=== PATIENT | female | born 1960 | race Caucasian/White ===

== ENCOUNTER 2016-12-04 20:47 | Emergency (ER) | payer OTHER ==
[2016-12-04 21:25] LABS: BASOPHILS % 0.4 (0.0-1.5); EOSINOPHILS % 3.8 % (0.0-6.8); MEAN CORPUSCULAR HEMOGLOBIN 32.3 pg (28.0-34.0); MEAN CORPUSCULAR VOLUME 91.8 fl (80.0-100.0); MONOCYTES % 5.1 % (0.0-11.0); NEUTROPHILS # 2.4 # k/uL (1.4-7.7)
--- NOTE | 2016-12-04 21:30 | ED Physician Documentation ---
General Adult - HISTORIAN Historian: patient, other (old records) - HPI Stated Complaint: chest pain, right shoulder pain Chief Complaint: General Adult Additional Information: Just doesn't feel good. R shoulder discomfort for 2 days, just like pain she has had intermittently for months. Had MRI, but never called to find out what it showed. Doesn't take meds for shoulder. No heat or ice. Low sternal discomfort for two days; aches. Better now. 3-4/110 intensity at its worst. Cough began this am. Out of claritin. Just wants an EKG. - ROS CONST: other (feels fisher hand line the evenings). denies: sweating - PAST HX Past History: asthma (doesn't use inhalers because she can't afford), other ( Says she had an ECHO last year and is to have another soon. Doesn't know why, or results. ) Allergies/Adverse Reactions: Allergies Allergy/AdvReac Type Severity Reaction Status Date / Time albuterol Allergy Verified 12/04/16 21:11 atenolol Allergy Verified 12/04/16 21:11 cephalexin monohydrate Allergy Verified 12/04/16 21:11 [From Keflex] ciprofloxacin [From Cipro] Allergy Verified 12/04/16 21:11 ciprofloxacin HCl Allergy Verified 12/04/16 21:11 [From Cipro] erythromycin base Allergy Verified 12/04/16 21:11 levofloxacin [From Levaquin] Allergy Verified 12/04/16 21:11 Penicillins Allergy Verified 12/04/16 21:11 Home Medications: Ambulatory Orders Medication Instructions Recorded Aspirin [Melony] 81 mg PO D 03/28/15 Hydrochlorothiazide 25 mg PO D 03/28/15 Ipratropium [place] [Atrovent] 2 puff IH BID 03/28/15 Levothyroxine Sodium [Synthroid] 150 mcg PO D 03/28/15 Loratadine [Claritin] 10 mg PO D 03/28/15 Omeprazole [Prilosec] 40 mg PO BID 03/28/15 Calcium Carb/Magnesium Hydrox 1 each PO D 05/12/15 [Antacid 675-135 mg Tab Chew] Cholecalciferol [Vitamin D-3] 1,000 unit PO DAILY 05/12/15 Multivitamin [Tab-A-Sadia] 1 each PO DAILY 05/12/15 - SOCIAL HX Smoking History: non-smoker - FAMILY HX Family History: No - VITAL SIGNS Vital Signs: Vital Signs Temp Pulse Resp BP Pulse Ox 63 16 165/62 95 12/04/16 21:00 12/04/16 21:00 12/04/16 21:00 12/04/16 21:10 - REVIEWED ASSESSMENTS Nursing Assessment Reviewed: Yes Vitals Reviewed: Yes Progress - Progress Progress: Chest, PA and lateral History: Cough, chest pain Findings: No infiltrate, effusion or pneumothorax is present. Heart size, mediastinum and pulmonary vascularity are normal. Impression: No active disease. Electronically signed on Dec 04, 2016 9:54:24 PM CDT by: See Zapien ED Results Lab/Radiology - Orders Orders: ED Orders Category Date Time Status Continuous EKG monitoring Q1H Care 12/04/16 21:10 Active Continuous Pulse Oximetry Q1H Care 12/04/16 21:10 Active CHEST P.A.&LAT 2 VIEWS [RAD] Stat Exams 12/04/16 Ordered CBC/PLATELET/DIFF Routine Lab 12/04/16 21:16 Received CMP Routine Lab 12/04/16 21:16 Received TROPONIN I (cTnI) Stat Lab 12/04/16 21:16 Received URINALYSIS Routine Lab 12/04/16 Ordered EKG WITH COMPARISON Stat Ther 12/04/16 Ordered General Adult Physical Exam - PHYSICAL EXAM GENERAL APPEARANCE: laughing, joking on admission. Obese. EENT: eye inspection normal, ENT inspection normal NECK: normal inspection, supple RESPIRATORY: no resp distress, chest non-tender, breath sounds normal CVS: reg rate & rhythm, heart sounds normal, no murmur ABDOMEN: soft, normal bowel sounds, non-tender RECTAL: deferred BACK: normal inspection, no CVA tenderness, other (no midline tenderness) SKIN: warm/dry, normal color EXTREMITIES: normal range of motion (gait and stance), no evidence of injury NEURO: CN's nml as tested, motor nml, sensation nml, cognition normal Discharge Clincal Impression: Chest wall pain, chronic right shoulder pain Additional Instructions: Take your claritin regularly. Heat and cold to the right shoulder. Home Medications: Ambulatory Orders Aspirin [Melony] 81 mg PO D 03/28/15 Hydrochlorothiazide 25 mg PO D 03/28/15 Ipratropium [place] [Atrovent] 2 puff IH BID 03/28/15 Levothyroxine Sodium [Synthroid] 150 mcg PO D 03/28/15 Loratadine [Claritin] 10 mg PO D 03/28/15 Omeprazole [Prilosec] 40 mg PO BID 03/28/15 Calcium Carb/Magnesium Hydrox [Antacid 675-135 mg Tab Chew] 1 each PO D Cholecalciferol [Vitamin D-3] 1,000 unit PO DAILY 05/12/15 Multivitamin [Tab-A-Saida] 1 each PO DAILY 05/12/15 Condition: Good Disposition: 01 HOME, SELF-CARE Decision to Admit: NO Decision Time: 22:00
[2016-12-04 21:37] LABS: eGFR (African) > 60; eGFR (Non-African) > 60
[2016-12-04 22:10] VITALS: BP 134/66
--- NOTE | 2016-12-05 02:29 | Diagnostic Imaging Report ---
JONY RHODES~ [facility] [address] [facility] [address] [place], [place]. [address] ~ ~ ~ ~ Report Submission Date: Dec 04, 2016 9:54:24 PM CDT Patient ~ Study Name: CORBIN KNOTT ~ Date: Dec 04, 2016 9:31:34 PM CDT ~ Modality Type: CR Gender: F ~ Description: CHEST : 56 ~ Institution: [facility] Physician: JONY RHODES ~ ~ ~ ~ Chest, PA and lateral History: Cough, chest pain Findings: No infiltrate, effusion or pneumothorax is present. Heart size, mediastinum and pulmonary vascularity are normal. Impression: No active disease. ~ Electronically signed on Dec 04, 2016 9:54:24 PM CDT by: See CANO
== END 2016-12-04 22:05 | disposition home or self-care (01) ==
LOC: ED 20:47
DX: R07.9 Chest pain, unspecified (principal); M25.511 Pain in right shoulder
CPT/HCPCS: 71020; 80053; 84484; 85025; 99283; S1016

== ENCOUNTER 2016-12-06 11:03 | Emergency (ER) | payer OTHER ==
[2016-12-06] MEDS ORDERED: LACTATED RINGERS 1,000 ML IV ONE (11:37)
--- NOTE | 2016-12-06 11:39 | ED Physician Documentation ---
Dizziness - HISTORIAN Historian: patient - HPI Stated Complaint: dizziness Chief Complaint: Dizziness Additional Information: she said the room is spinning, worse when she moves around. she was here 2 days ago for chest pain. AMI was ruled out. She took a meclizine today, but vomited afterwards. somewhat confusing is her history. When she revealed she had taken meclizine, I inquired is she has had dizzy spells before, and she stated "long time ago." so I inquired about how old the meclizine was, and she said "oh I just got it refilled>" so i asked how often she needs to take it, ahe states 3- 4 times a week, "I get woozy when I walk up the stairs. Timing: sudden onset Duration: constant Severity: mild Associated Symptoms: nausea, vomiting, sense of spinning Usually: walks w/o assistance Worsened By: changing position, movement of head Further Comments: no - ROS CONST: none EYES/ENT: none GI/: none MS/SKIN/LYMPH: none NEURO/PSYCH: none CVS/RESP: chest pain (came here 2 days ago, had complete workup) - PAST HX Past History: asthma, hyperlipidemia, hypertension Allergies/Adverse Reactions: Allergies Allergy/AdvReac Type Severity Reaction Status Date / Time albuterol Allergy Verified 12/06/16 12:08 atenolol Allergy Verified 12/06/16 12:08 cephalexin monohydrate Allergy Verified 12/06/16 12:08 [From Keflex] ciprofloxacin [From Cipro] Allergy Verified 12/06/16 12:08 ciprofloxacin HCl Allergy Verified 12/06/16 12:08 [From Cipro] erythromycin base Allergy Verified 12/06/16 12:08 levofloxacin [From Levaquin] Allergy Verified 12/06/16 12:08 Penicillins Allergy Verified 12/06/16 12:08 Home Medications: Ambulatory Orders Medication Instructions Recorded Aspirin [Melony] 81 mg PO D 03/28/15 Hydrochlorothiazide 25 mg PO D 03/28/15 Ipratropium [place] [Atrovent] 2 puff IH BID 03/28/15 Levothyroxine Sodium [Synthroid] 150 mcg PO D 03/28/15 Loratadine [Claritin] 10 mg PO D 03/28/15 Omeprazole [Prilosec] 40 mg PO BID 03/28/15 Calcium Carb/Magnesium Hydrox 1 each PO D 05/12/15 [Antacid 675-135 mg Tab Chew] Cholecalciferol [Vitamin D-3] 1,000 unit PO DAILY 05/12/15 Multivitamin [Tab-A-Sadia] 1 each PO DAILY 05/12/15 - SOCIAL HX Smoking History: non-smoker Alcohol Use: none Drug Use: none - FAMILY HX Family History: none - VITAL SIGNS Vital Signs: Vital Signs Temp Pulse Resp BP Pulse Ox 98.2 F 61 20 143/60 94 12/06/16 11:32 12/06/16 11:32 12/06/16 11:32 12/06/16 11:32 12/06/16 11:32 - REVIEWED ASSESSMENTS Nursing Assessment Reviewed: Yes Vitals Reviewed: Yes Progress - Results/Orders Results/Orders: Still with mildly low potassium, thrombocytopenia - EKG/XRAY/CT EKG: NSR (still with bradycardia) ED Results Lab/Radiology - Orders Orders: ED Orders Category Date Time Status Place Saline Lock/IV Now Care 12/06/16 11:[address] BRAIN W/O CONTRAST Stat Exams 12/06/16 11:34 Ordered CBC/PLATELET/DIFF Routine Lab 12/06/16 Ordered CMP Routine Lab 12/06/16 Ordered CREATINE KINASE Routine Lab 12/06/16 Ordered URINALYSIS Routine Lab 12/06/16 Ordered Lactated Ringers [Ringers, Lactated] 1,000 ml Med 12/06/16 11:30 Ordered IV Q10H Promethazine HCl [Phenergan] 25 mg Med 12/06/16 11:32 Ordered 0.9 % Sodium Chloride [Sodium Chloride] 50 ml IV NOW Dizziness Physical Exam - Physical Exam General Appearance: no distress EENT: eye inspection normal, ENT inspection normal, pharynx normal, no signs of dehydration, TM's nml (hard ceruman lying on half R TM). No: no nystagmus Neck: normal inspection, thyroid normal, supple. No: carotid bruit Respiratory: no respiratory distress, breath sounds nml, chest non-tender CVS: reg rate & rhythm, heart sounds normal Abdomen: soft, no distension. No: abnormal bowel sounds Skin: warm/dry, normal color Neuro: nml orientation, nml speech, nml cognition, mood/affect nml Extremities: non-tender, normal range of motion, no evidence of injury. No: edema Cranial: nml as tested, no evidence of acute CVA Cerebellar: nml as tested. No: abnml [id number] Sensorimotor: motor nml, sensation nml Discharge Clincal Impression: Dizziness, Thrombocytopenia, Hypokalemia, Bradycardia Vestibular neuronitis Qualifiers: Laterality: unspecified laterality Qualified Code(s): H81.20 - Vestibular neuronitis, unspecified ear Home Medications: Ambulatory Orders Aspirin [Melony] 81 mg PO D 03/28/15 Hydrochlorothiazide 25 mg PO D 03/28/15 Ipratropium [place] [Atrovent] 2 puff IH BID 03/28/15 Levothyroxine Sodium [Synthroid] 150 mcg PO D 03/28/15 Loratadine [Claritin] 10 mg PO D 03/28/15 Omeprazole [Prilosec] 40 mg PO BID 03/28/15 Calcium Carb/Magnesium Hydrox [Antacid 675-135 mg Tab Chew] 1 each PO D Cholecalciferol [Vitamin D-3] 1,000 unit PO DAILY 05/12/15 Multivitamin [Tab-A-Sadia] 1 each PO DAILY 05/12/15 Condition: Good Disposition: 01 HOME, SELF-CARE Decision to Admit: NO Date of Decison to Admit: 12/06/16 Decision Time: 13:16
[2016-12-06] MEDS ORDERED: 0.9 % SODIUM CHLORIDE 50 ML IV ONE (11:42)
[2016-12-06] MEDS ORDERED: PROMETHAZINE HCL 25 MG/ML VIAL ONE (11:42)
[2016-12-06] MEDS: PROMETHAZINE HCL 25 MG in 0.9 % SODIUM CHLORIDE 50 ML IV PRN (11:47)
[2016-12-06] MEDS: LACTATED RINGERS 1,000 ML IV SCH (11:48)
[2016-12-06 11:50] LABS: BASOPHILS % 0.4 (0.0-1.5); EOSINOPHILS % 1.5 % (0.0-6.8); MEAN CORPUSCULAR HEMOGLOBIN 31.5 pg (28.0-34.0); MEAN CORPUSCULAR VOLUME 90.1 fl (80.0-100.0); MONOCYTES % 3.2 % (0.0-11.0); NEUTROPHILS # 2.7 # k/uL (1.4-7.7)
[2016-12-06 12:06] LABS: eGFR (African) > 60; eGFR (Non-African) > 60
[2016-12-06 13:10] LABS: APPEARANCE,URINE Slightly Cloudy (CLEAR); COLOR,URINE Yellow (YELLOW); OCCULT BLOOD,URINE 2+ (NEGATIVE); PH URINE 8.5 (5.0 - 8.0); UROBILINOGEN URINE 0.2 Eu (0.2-1.0)
[2016-12-06 13:15] LABS: AMORPHOUS SEDIMENT,UR FEW (NEGATIVE)
[2016-12-06 13:39] VITALS: BP 151/79
--- NOTE | 2016-12-06 16:25 | Diagnostic Imaging Report ---
[facility] [address] [facility] [address] [place], [place]. [address] Report Submission Date: December 06, 2016 12:52:42 PM CDT Patient Study Name: CORBIN KNOTT Date: December 06, 2016 12:11:39 PM CDT Modality Type: CT\SR Gender: F Description: CT BRAIN W/O CONTRAST : 56 Institution: [facility] Physician SUSAN FARNSWORTH Head CT without contrast CLINICAL HISTORY: Dizziness upon waking this morning. TECHNIQUE: CT examination of brain is performed in contiguous axial slices with sagittal and coronal reconstructions. FINDINGS: 4th ventricle lies in a normal midline position. The ventricles and sulci are prominent consistent with atrophy. There is prominence of the cisterna magna. There is no hypodense or hyperdense mass or intracranial hemorrhage. Visualized paranasal sinuses and the mastoid air cells are clear. IMPRESSION: Atrophy No acute intracranial changes. Electronically signed on December 06, 2016 12:52:42 PM CDT by: Jayme CANO
== END 2016-12-06 13:37 | disposition home or self-care (01) ==
LOC: ED 11:03
DX: H81.20 Vestibular neuronitis, unspecified ear (principal); R42 Dizziness and giddiness; R00.1 Bradycardia, unspecified
CPT/HCPCS: 70450; 80053; 81002; 82550; 85025; 93005; J2550; J7120; 96360; 99283; S1016

== ENCOUNTER 2016-12-24 16:45 | Emergency (ER) | payer OTHER ==
[2016-12-24] MEDS ORDERED: ASPIRIN 325 MG TABLET ONE (17:24)
[2016-12-24] MEDS: ASPIRIN 81 MG CHEW TAB PO ONE (17:25)
[2016-12-24] MEDS: NITROGLYCERIN 0.4 MG TAB.SUBL SL PRN (17:25)
[2016-12-24 17:29] LABS: BASOPHILS % 0.7 (0.0-1.5); EOSINOPHILS % 3.5 % (0.0-6.8); MEAN CORPUSCULAR HEMOGLOBIN 32.2 pg (28.0-34.0); MEAN CORPUSCULAR VOLUME 91.5 fl (80.0-100.0); MONOCYTES % 5.5 % (0.0-11.0); NEUTROPHILS # 2.4 # k/uL (1.4-7.7)
[2016-12-24 17:47] LABS: eGFR (African) > 60; eGFR (Non-African) > 60
[2016-12-24 19:07] VITALS: BP 113/53
--- NOTE | 2016-12-25 05:57 | Diagnostic Imaging Report ---
Name: CORBIN KNOTT ~~ ~~ : 56 ~~ Acc #: [id number]~ ~ DOS: December 24, 2016 5:32:55 PM CDT ~~ Mod: CR ~~ Desc: CHEST 1 of 1 JAMIE BRYANT~ [address] [address] ~ ~ ~ ~ Report Submission Date: December 24, 2016 5:48:59 PM CDT Patient ~ Study Name: CORBIN KNOTT ~ Date: December 24, 2016 5:32:55 PM CDT ~ Modality Type: CR Gender: F ~ Description: CHEST : 56 ~ Institution: [facility] Physician: JAMIE BRYANT ~ ~ ~ ~ Ap portable upright radiographs of the chest Clinical history: Chest pain Technique: anterior /posterior portable upright Findings: The lung vela are clear. The heart appears enlarged. There is pulmonary vascular congestion.. The bony thorax is unremarkable. No pneumothorax or pleural effusion is seen. Large amount scatter artifact is present. Impression: Prominent central vessels Borderline cardiomegaly. Clear peripheral lung vela ~ Electronically signed on December 24, 2016 5:48:59 PM CDT by: Lucien CANO
--- NOTE | 2016-12-25 05:58 | Diagnostic Imaging Report ---
JAMIE BRYANT~ [facility] [address] [address] ~ ~ ~ ~ Report Submission Date: December 24, 2016 6:31:33 PM CDT Patient ~ Study Name: CORBIN KNOTT ~ Date: December 24, 2016 6:01:54 PM CDT ~ Modality Type: CR Gender: F ~ Description: SHOULDER : 56 ~ Institution: [facility] Physician: JAMIE BRYANT ~ ~ ~ ~ Right shoulder 3 views Clinical history: Pain for 2 days Very mild osteoarthritis of the right shoulder without visible fracture, dislocation or bone destruction. No soft tissue calcifications. Impression: Osteoarthritis without fractures ~ Electronically signed on December 24, 2016 6:31:33 PM CDT by: Luis CANO
--- NOTE | 2017-02-22 13:42 | ED Physician Documentation ---
General Adult - HISTORIAN Historian: patient - HPI Stated Complaint: pain right shoulder and neck Chief Complaint: Upper Extremity Problem Additional Information: rt shoulder pain radiates to neck and down arm onset 2 d ago worse today. there is mild sternal discomfort. no diaphoresis or sob Timing: still present, worse Severity: moderate - ROS CONST: no problems EYES/ENT: none CVS/RESP: denies: shortness of breath, cough GI/: none MS/SKIN/LYMPH: none - PAST HX Past History: hypertension, other (gerd hep c lo thryoid) Surgeries/Procedures: other (carpal tunnel) Allergies/Adverse Reactions: Allergies Allergy/AdvReac Type Severity Reaction Status Date / Time albuterol Allergy Verified 12/06/16 12:08 atenolol Allergy Verified 12/06/16 12:08 cephalexin monohydrate Allergy Verified 12/06/16 12:08 [From Keflex] ciprofloxacin [From Cipro] Allergy Verified 12/06/16 12:08 ciprofloxacin HCl Allergy Verified 12/06/16 12:08 [From Cipro] erythromycin base Allergy Verified 12/06/16 12:08 levofloxacin [From Levaquin] Allergy Verified 12/06/16 12:08 Penicillins Allergy Verified 12/06/16 12:08 Sulfa (Sulfonamide Allergy Verified 12/24/16 17:47 Antibiotics) Home Medications: Ambulatory Orders Medication Instructions Recorded Hydrochlorothiazide 25 mg PO D 03/28/15 Ipratropium [place] [Atrovent] 2 puff IH BID 03/28/15 Levothyroxine Sodium [Synthroid] 150 mcg PO D 03/28/15 Loratadine [Claritin] 10 mg PO D 03/28/15 Omeprazole [Prilosec] 40 mg PO BID 03/28/15 Calcium Carb/Magnesium Hydrox 1 each PO D 05/12/15 [Antacid 675-135 mg Tab Chew] Cholecalciferol [Vitamin D-3] 1,000 unit PO DAILY 05/12/15 Multivitamin [Tab-A-Sadia] 1 each PO DAILY 05/12/15 - SOCIAL HX Smoking History: non-smoker Alcohol Use: none Drug Use: none - FAMILY HX Family History: No - VITAL SIGNS Vital Signs: Vital Signs Temp Pulse Resp BP Pulse Ox 36.6 F L 53 L 20 113/53 97 12/24/16 17:29 12/24/16 19:05 12/24/16 19:05 12/24/16 19:05 12/24/16 19:05 - REVIEWED ASSESSMENTS Nursing Assessment Reviewed: Yes Vitals Reviewed: Yes ED Results Lab/Radiology - Lab Results Lab Results: Lab Results 12/24/16 12/24/16 12/24/16 17:25 17:25 17:25 WBC 4.80 K/ul K/ul (4.00-12.00) RBC 4.47 M/ul M/ul (3.90-5.20) Hgb 14.4 g/dL g/dL (12.0-16.0) Hct 40.9 % % (34.5-46.5) MCV 91.5 fl fl (80.0-100.0) MCH 32.2 pg pg (28.0-34.0) MCHC 35.2 g/dL g/dL (30.0-36.0) RDW 14.5 % H % (11.3-14.3) Plt Count 81 K/mm3 L K/mm3 (130-400) Neut % (Auto) 49.6 % % (39.0-79.0) Lymph % (Auto) 38.6 % % (16.0-50.0) [place] % (Auto) 5.5 % % (0.0-11.0) Eos % (Auto) 3.5 % % (0.0-6.8) Baso % (Auto) 0.7 (0.0-1.5) Neut # 2.4 # k/uL # k/uL (1.4-7.7) Lymph # 1.8 # k/uL # k/uL (0.6-4.0) [place] # 0.3 # k/uL # k/uL (0.0-0.9) Eos # 0.2 # k/uL # k/uL (0.0-0.6) Baso # 0.0 # k/uL # k/uL (0.0-0.5) Reactive Lymphs % 2.2 % % (0.0-5.0) Reactive Lymphs # 0.1 # k/uL # k/uL (0.0-0.8) Sodium 139 mmol/L mmol/L (136-145) Potassium 3.8 mmol/L mmol/L (3.5-5.0) Chloride 103 mmol/L mmol/L (98-110) Carbon Dioxide 34 mmol/L H mmol/L (20-32) BUN 14 mg/dL mg/dL (10-26) Creatinine 0.7 mg/dL mg/dL (0.4-1.5) Estimated Creat Clear 177 Est GFR ( Amer) > 60 (60 - ) Est GFR (Non-Af Amer) > 60 (60 - ) Glucose 125 mg/dL H mg/dL (70-99) Calcium 9.7 mg/dL mg/dL (8.5-10.5) Total Bilirubin 0.7 mg/dL mg/dL (0.2-1.2) AST 34 U/L U/L (0-41) ALT 28 U/L U/L (0-45) Alkaline Phosphatase 98 U/L U/L (46-116) Troponin I < 0.03 ng/mL L ng/mL (0.03-0.06) Total Protein 7.9 g/dL g/dL (6.0-8.5) Albumin 4.1 g/dL g/dL (3.0-5.5) - Orders Orders: ED Orders Category Date Time Status Continuous EKG monitoring Q30M Care 12/24/16 17:21 Active Continuous Pulse Oximetry Q30M Care 12/24/16 17:[address] Saline Lock/IV NOW Care 12/24/16 17:21 Active CHEST 1 VIEW [RAD] Stat Exams 12/24/16 17:21 Completed SHOULDER 2 VIEWS OR MORE [RAD] Stat Exams 12/24/16 Completed CBC/PLATELET/DIFF Routine Lab 12/24/16 17:25 Completed CMP Routine Lab 12/24/16 17:25 Completed TROPONIN I (cTnI) Stat Lab 12/24/16 17:25 Completed Aspirin Med 12/24/16 17:21 Discontinued 324 mg PO NOW ONE Aspirin Med 12/24/16 17:24 Discontinued 325 mg .ROUTE .STK-MED ONE Nitroglycerin [Nitroquick] Med 12/24/16 17:21 Discontinued 0.4 mg SL Q5M PRN EKG WITH COMPARISON Stat Ther 12/24/16 17:21 Completed General Adult Physical Exam - PHYSICAL EXAM GENERAL APPEARANCE: mild distress EENT: eye inspection normal NECK: other (sl tenderness rt lower neck) RESPIRATORY: no resp distress CVS: reg rate & rhythm, heart sounds normal ABDOMEN: soft, non-tender BACK: normal inspection SKIN: warm/dry, normal color. No: cyanosis, diaphoresis, jaundice NEURO: oriented X3, motor nml, sensation nml, mood/affect nml Discharge Clincal Impression: acujte ligt sprain Referrals: Anthony Robbins MD [Primary Care Provider] - 2 Days Home Medications: Ambulatory Orders Hydrochlorothiazide 25 mg PO D 03/28/15 Ipratropium [place] [Atrovent] 2 puff IH BID 03/28/15 Levothyroxine Sodium [Synthroid] 150 mcg PO D 03/28/15 Loratadine [Claritin] 10 mg PO D 03/28/15 Omeprazole [Prilosec] 40 mg PO BID 03/28/15 Calcium Carb/Magnesium Hydrox [Antacid 675-135 mg Tab Chew] 1 each PO D Cholecalciferol [Vitamin D-3] 1,000 unit PO DAILY 05/12/15 Multivitamin [Tab-A-Sadia] 1 each PO DAILY 05/12/15 Comments: home ibu hmp f/u w/pcp or rt ed prn Condition: Good Disposition: 01 HOME, SELF-CARE Decision to Admit: NO Decision Time: 18:57
== END 2016-12-24 19:04 | disposition home or self-care (01) ==
LOC: ED 16:45
DX: M25.511 Pain in right shoulder (principal); M54.2 Cervicalgia
CPT/HCPCS: 71010; 73030; 80053; 84484; 85025; 93005; A9270; 99283; S1016